=== PATIENT | male | born 1945 | race Caucasian/White ===

== ENCOUNTER 2016-06-25 15:24 | Emergency (ER) | payer OTHER, MEDICARE ==
[2016-06-25 16:01] VITALS: BP 146/64; PULSE 66; RESP 16; TEMP 98.2; O2SAT 93
--- NOTE | 2016-06-25 16:04 | UCPHY ---
H & P Patient Type: Established HPI/ROS: CHIEF COMPLAINT: Found blood on his pillow. HISTORY OF PRESENT ILLNESS: The patient is a 71-year-old male who wears a CPAP mask at night presenting because he and his noticed a small pool of blood on his pillow this morning. The pool was the size of a few half-dollar coins. He does wear hearing aids (not at night) but did not notice any blood on these. He denies head trauma, dizziness, or other complaints. He does not use Q-tips in his ears. There was no blood on his fingers. He is not anticoagulated on blood-thinners. REVIEW OF SYSTEMS: Constitutional: No fever, no chills. ENT: No sore throat. Respiratory: No cough, no shortness of breath, no wheezing. Skin: No rashes. Past Medical/Surgical History: Prostate cancer, prostatectomy, right knee melanoma, appendectomy, vasectomy, colonoscopy, venous insufficiency, migraine, hiatal hernia. Social History: Nonsmoker. Smoking Status: Never smoked Physical Exam: General Appearance: Alert, no distress. Afebrile. Normal phonation. No respiratory distress. Eyes: Pupils equal and round no pallor or injection. No icterus ENT, Mouth: Mucous membranes moist. Pharynx not erythematous and without exudate. TM Clear. No intraoral lesions as a source of possible bleeding. There is a small hemangioma on the ear lobe posteriorly on the right however this appears benign, no evidence of recent bleeding, nor is not friable. Neck: No adenopathy. Supple. No JVD. Trachea in midline. Respiratory: There are no retractions, lungs are clear to auscultation. Skin: Warm and dry, no rashes. Multiple hemangiomas on the chest however none of these are bleeding or friable Musculoskeletal: No joint swelling. Extremities: No edema. Psychiatric: Pleasant, normal affect Constitutional: Initial Vital Signs Temperature (C) 36.8 C 06/25/16 15:52 Heart Rate 66 06/25/16 15:52 Respiratory Rate 16 06/25/16 15:52 Blood Pressure 146/64 H 06/25/16 15:52 O2 Sat (%) 93 06/25/16 15:52 O2 Delivery Mode Room Air Allergies/Adverse Reactions: No Known Allergies Allergy (Verified 06/25/16 15:53) Home Medications: Medication Instructions Recorded Lisinopril 08/31/14 Montelukast Sodium 08/31/14 Azelastine 09/21/15 Oxybutynin Chloride 09/21/15 Qvar 09/21/15 Bupropion HCl 11/22/15 Centrum Silver Tablet 11/22/15 Coq-10 11/22/15 L Tyrosine 11/22/15 MAGNESIUM 11/22/15 Vitamin C 11/22/15 Medical Decision Making ED Course/Re-evaluation: I cannot find a source of the bleeding. He has multiple hemangiomas across his chest which were benign and not bleeding. There is 1 on the posterior aspect of the right ear lobe near the spotting question as to where the area was on the pillow however he had no staining of blood there earlier when he woke up. Further I am unable to chief at this and caused it to bleed at this point in time nor does it have the appearance of having blood recently. In the computer program there is no appropriate S/in for his instruction sheet thus I selected nosebleed for a close approximation Differential Diagnosis: Diagnostic considerations include, but are not limited to, the following: URI, sinusitis, pharyngitis, otitis media, pneumonia, allergy, bleeding disorder Departure - Departure Disposition: Home, Routine, Self-Care Clinical Impression: Bleeding from unknown site Condition: Good Instructions: Nosebleed (ED) Additional Instructions: Follow up with your primary care provider or return to Urgent Care for any continued concerns. Referrals: Aminata Stephenson [Primary Care Provider] - As per Instructions - PQRS PQRS Measurement: 134: Depression screening and followup, PRIME MD-PHQ2 (12 years and older) Over the last 2 weeks, how often have you been bothered by any of the following problems? 1. Feeling down, depressed, or hopeless? 2. Little interest or pleasure in doing things? Patient answered no to both 1 and 2 130: Documentation of medications. Reviewed all patient medications, doses, route and frequency. 226: Do you smoke? No. 47: 65 and older: Advanced care planning. Patient designates surrogate decision maker as spouse 51: 18 years old and older with diagnosis of COPD, spirometry performance. Patient has no history of COPD 52: 18 years old and older with COPD and symptoms of COPD or FEV1<60% predicted prescribed a B Agonist. Patient has no history of COPD Report Scribed for: Eliot Castellanos Report Scribed by: Kvng Phelan Date of Report: 06/25/16 Time of Report: 16:02 Physician Review and Approval Statement: 06/25/16 16:02 Portions of this note were transcribed by a medical scientific officer. I personally performed a history, physical exam, medical decision making, and confirmed accuracy of information the transcribed note.
== END 2016-06-25 16:50 | disposition home or self-care (01) ==
LOC: CED 15:24
DX: R04.0 Epistaxis (principal); D18.01 Hemangioma of skin and subcutaneous tissue
CPT/HCPCS: G0463-PO